=== PATIENT | female | born 1975 | race Caucasian/White ===

== ENCOUNTER 2017-12-19 19:18 | Emergency (ER) | payer OTHER ==
[~2017-12-19] VITALS: Ht 162.6 cm; Wt 93.0 kg
[~2017-12-19 19:18] MED LIST: ACETAMINOPHEN325 M1 PO; BACTRIM DS TAB1 EACH PO; CLEOCIN HCL300 MG PO; DILAUDID2 M1 PO; IBUPROFEN 200200 M1 PO; IBUPROFEN 800800 M1 PO; KEFLEX500 MG PO; LORTAB 5 MG/5001 TA1 PO; NOHOMEMEDICATIONS; NORCO 5-325 TA1 EACH PO; PENICILLIN V P500 MG PO
[2017-12-19] MEDS ORDERED: AUGMENTIN 500-1 EACH PO (20:21)
[2017-12-19 20:36] VITALS: BP 170/70
== END 2017-12-19 21:15 | disposition home or self-care (01) ==
LOC: ER 19:18
DX: S61.217A Laceration without foreign body of left little finger without damage to nail, initial encounter (principal); F17.210 Nicotine dependence, cigarettes, uncomplicated; Z23 Encounter for immunization; W54.0XXA Bitten by dog, initial encounter; Y93.89 Activity, other specified; Y92.89 Other specified places as the place of occurrence of the external cause; Y99.8 Other external cause status

== ENCOUNTER 2018-03-26 02:02 | Emergency (ER) | payer OTHER ==
[~2018-03-26] VITALS: Ht 162.6 cm; Wt 95.3 kg
[~2018-03-26 02:02] MED LIST changes: +AUGMENTIN 500-1 EACH PO
[2018-03-26] MEDS ORDERED: BACTRIM DS TAB1 EACH PO (02:57)
[2018-03-26 05:29] VITALS: BP 103/69
== END 2018-03-26 03:35 | disposition home or self-care (01) ==
LOC: ER 02:02
DX: L03.317 Cellulitis of buttock (principal); F17.210 Nicotine dependence, cigarettes, uncomplicated